=== PATIENT | female | born 1990 | race Hispanic/Latino ===

== ENCOUNTER 2020-02-20 10:03 | Day surgery (SDC) | payer OTHER ==
[2020-02-20 10:35] VITALS: BMI 36.0
[2020-02-20] MEDS ORDERED: hydrALAZINE 20 MG/ML VIAL SLOW IVP PRN (10:44)
[2020-02-20] MEDS ORDERED: FLU VACC QS2020-21(6MOS UP)/PF 60 MCG/0.5 ML SYRINGE IM ONE (10:45)
--- NOTE | 2020-02-20 11:53 | ULT ---
LIMITED OBSTETRICAL ULTRASOUND FOR BIOPHYSICAL PROFILE: Date: 02/20/2020 INDICATION: History of a 37 week intrauterine with decreased movement. FINDINGS: There is a single, live intrauterine gestation in vertex presentation. The placenta is anterior in lo cation without overt evidence of previa. The head limited visualization of the cervix. VINICIO was 21.4 cm. heart rate was 152 bpm. Tone: 2/2 Breathin/2 Movement: 2/2 Amniotic Fluid Volume: 2/2 Total: 12/01 IMPRESSION: Biophysical profile is 12/01. POS:
--- NOTE | 2020-02-21 04:08 | SS ---
DATE OF ADMISSION: 02/20/2020 DATE OF DISCHARGE: 02/20/2020 CHIEF COMPLAINT: Decreased movement. REGULAR PHYSICIAN: Fahad Mayo MD EVALUATING PHYSICIAN: En Sifuentes MD HISTORY OF PRESENT ILLNESS: Ms. Ceballos is a 29-year-old G1, P0 with an estimated date of confinement of 03/09/2020, who presents complaining of decreased movement since last evening. When questioned specifically about that, she does say that her baby has been moving. It is just less than what she would notice before. She denies ruptured membranes or vaginal bleeding. Her care has been with Dr. Mayo and she has been followed for elevated blood pressures, but has required no medicine. PAST MEDICAL HISTORY: Hypertension, reportedly secondary to control pills. PAST SURGICAL HISTORY: None. CURRENT MEDICATIONS: vitamins. ALLERGIES: LOW STATIN, WHICH SHE STATES GIVES HER HIVES. SOCIAL HISTORY: She denies tobacco, alcohol, or drug use. FAMILY HISTORY: Unremarkable. REVIEW OF SYSTEMS: Denies nausea, vomiting, fever, chills, ruptured membranes, or vaginal bleeding. PHYSICAL EXAMINATION: VITAL SIGNS: Initial blood pressure is 135/92, repeat is 126/81. GENERAL: She is pleasant and in no acute distress. heart rate tracing is stable. There are no decelerations. Good ewyz-iw-iuyk variability is seen. Biophysical profile returns 8/8 with adequate amniotic fluid. ASSESSMENT: 1. Thirty-seven week intrauterine . 2. Reassuring testing today. PLAN: Patient has been dismissed to home. The nature of movement late in a was discussed with her in detail. She states she has an appointment with Dr. Mayo in the morning. Job ID: [id number]
== END 2020-02-20 11:23 | disposition home or self-care (01) ==
LOC: L&D/OP 10:03
PROVIDERS: ATTEND Obstetrics & Gynecology
DX: O36.8130 Decreased fetal movements, third trimester, not applicable or unspecified (principal); O16.3 Unspecified maternal hypertension, third trimester; Z3A.37 37 weeks gestation of pregnancy; Z88.8 Allergy status to other drugs, medicaments and biological substances
CPT/HCPCS: 59025; 76819; 99282

== ENCOUNTER 2020-02-23 08:40 | Outpatient (CLI) | payer OTHER ==
[2020-02-23 17:49] LABS: SARS-CoV-2 MS2 Positive; SARS-CoV-2 N Gene Negative; SARS-CoV-2 S Gene Negative; SARS-CoV-2 by NAA Not Detected (NotDetected); SARS-CoV-2 orf1ab Negative
== END 2020-02-23 08:41 | disposition home or self-care (01) ==
LOC: LABBT 08:40
PROVIDERS: ATTEND Obstetrics & Gynecology
DX: Z20.828 Contact with and (suspected) exposure to other viral communicable diseases (principal)
CPT/HCPCS: 87635; U0003

== ENCOUNTER 2020-02-26 05:30 | Inpatient (IN) | payer OTHER ==
[2020-02-26] MEDS ORDERED: Carboprost 250 MCG/ML AMP IM PRN (20:05)
[2020-02-26] MEDS ORDERED: NS / Oxytocin 40 units/1000ml 1,000 ML IV PRN (20:05)
[2020-02-26] MEDS ORDERED: Butorphanol Tartrate 1 MG/ML VIAL SLOW IVP PRN (20:05)
[2020-02-26] MEDS ORDERED: Ondansetron PF 4 MG/2 ML Vial IVP PRN (20:05)
[2020-02-26] MEDS ORDERED: Promethazine HCl 25 MG/ML VIAL IM PRN (20:05)
[2020-02-26] MEDS ORDERED: Acetaminophen 500 MG TAB PO PRN (20:05)
[2020-02-26] MEDS ORDERED: Docusate 100 MG CAP PO PRN (20:05)
[2020-02-26] MEDS ORDERED: hydrALAZINE 20 MG/ML VIAL SLOW IVP PRN (20:05)
[2020-02-26] MEDS ORDERED: Misoprostol 200 MCG TAB PR PRN (20:05)
[2020-02-26] MEDS ORDERED: HYDROcodone/Acetaminophen 5/325 mg Tablet PO PRN ×2 (20:05)
[2020-02-26] MEDS ORDERED: Ibuprofen 800 MG TAB PO PRN (20:05)
[2020-02-26] MEDS ORDERED: Zolpidem Tartrate 5 MG TAB PO PRN (20:05)
[2020-02-26] MEDS ORDERED: Lidocaine 1% (PF) 30 ML VIAL SC PRN (20:05)
[2020-02-26] MEDS ORDERED: Diphenoxylate HCl/Atropine Tablet PO PRN ×2 (20:05)
--- NOTE | 2020-02-26 20:09 | PDOC.LDHP ---
Labor and Delivery H&P Chief complaint: scheduled induction HPI: 29 y/o at 38 weeks with CHTN for medical induction of labor. Current gestational age (weeks): 38 Grav: 1 Para: 0 Current complications: hypertension Abnormal US findings: No Current medications: pre- vitamins Allergies/Adverse Reactions: Allergies Allergy/AdvReac Type Severity Reaction Status Date / Time No Known Allergies Allergy Unverified 02/20/20 10:36 Social history: none - Physical Exam Vital signs reviewed and normal: yes General: NAD, resting Heart: other Lungs: nonlabored breathing Abdomen: gravid Extremeties: no edema FHT: category 1 - Assessment L&D Assessment: medically indicated induction - Plan Plan: admit to L&D, cervical ripening
[2020-02-26] MEDS ORDERED: NS w/ Oxytocin 10 units 500 ML IV SCH ×2 (20:15)
[2020-02-26 20:59] VITALS: BMI 35.2
[2020-02-26] MEDS: Lactated Ringer's 1,000 ML IV SCH ×2 (21:30→22:50)
[2020-02-26 21:42] LABS: Hemoglobin 12.9 g/dL (12.0-16.0); Mean Corpuscular HGB CONC 35.7 g/dL (32.0-36.0); Mean Corpuscular Hemoglobin 31.8 pg (27.0-31.0); Mean Corpuscular Volume 89.3 fL (78.0-98.0); Mean Platelet Volume 8.8 fL (7.4-10.4); Platelet Count 210 thou/uL (130-400); RBC Distribution Width 11.9 % (11.5-14.5); Red Blood Cell (RBC) Count 4.05 mill/uL (4.20-5.40); White Blood Cell (WBC) Count 9.5 thou/uL (4.8-10.8)
[2020-02-26 22:20] LABS: Syphilis Antibody Nonreactive (Nonreactive); Syphilis Antibody Index 0.05 S/CO (<1.00 Non-Reactive)
[2020-02-26 22:21] LABS: HBSAg Index 0.67 S/CO (0-0.99); Hep B Surf Ag Non-Reactive S/CO (NonReactive)
[2020-02-26] MEDS: Misoprostol 100 MCG TAB VAG SCH (23:00)
[2020-02-27] MEDS: Misoprostol 100 MCG TAB VAG SCH ×4 (02:17→22:26)
[2020-02-27] MEDS: Lactated Ringer's 1,000 ML IV SCH ×3 (06:23→17:34)
[2020-02-27] MEDS ORDERED: FLU VACC QS2020-21(6MOS UP)/PF 60 MCG/0.5 ML SYRINGE IM ONE (09:00)
[2020-02-27] MEDS ORDERED: Misoprostol 100 MCG TAB PO SCH (17:30)
[2020-02-28] MEDS: Misoprostol 100 MCG TAB VAG SCH ×5 (10:16→23:16)
[2020-02-28] MEDS ORDERED: Bicitra 30 ML UDCUP ONE (16:20)
[2020-02-28] MEDS ORDERED: Oxytocin 10 UNITS/ML VIAL ONE (17:10)
[2020-02-28] MEDS ORDERED: ePHEDrine 50 MG/ML VIAL ONE (17:10)
[2020-02-28] MEDS ORDERED: PHENYLEPHRINE-NS 100 MCG/ML 10 ML SYRINGE ONE (17:10)
[2020-02-28] MEDS ORDERED: CEFAZOLIN 2 GM in Premix Bag 1 BAG IVPB SCH (17:30)
[2020-02-28] MEDS ORDERED: Bicitra 30 ML UDCUP PO SCH (17:30)
[2020-02-28] MEDS ORDERED: Naloxone HCl 0.4 mg/ml Vial IV PRN (17:32)
[2020-02-28] MEDS ORDERED: diphenhydrAMINE 50 MG/ML VIAL IVP PRN (17:32)
[2020-02-28] MEDS ORDERED: Ondansetron HCl/PF 4 MG/2 ML Vial IVP PRN (17:32)
[2020-02-28] MEDS ORDERED: Naloxone HCl 0.4 mg/ml Vial IVP PRN ×2 (17:32)
[2020-02-28] MEDS ORDERED: Ketorolac Tromethamine 30 MG/ML VIAL IVP PRN (17:32)
[2020-02-28] MEDS ORDERED: Ondansetron PF 4 MG/2 ML Vial IVP PRN ×2 (17:32→21:33)
[2020-02-28] MEDS ORDERED: Promethazine HCl 25 MG/ML VIAL IM PRN ×2 (17:32→21:33)
[2020-02-28] MEDS ORDERED: Promethazine HCl 25 MG SUPP PR PRN (17:32)
[2020-02-28] MEDS ORDERED: Fentanyl 100 MCG/2 ML VIAL ONE (17:36)
[2020-02-28] MEDS ORDERED: Communication Order-Pharmacy FS SCH (17:45)
[2020-02-28] MEDS ORDERED: Acetaminophen 650 MG Suppository PR SCH (18:00)
[2020-02-28] MEDS ORDERED: diphenhydrAMINE 50 MG/ML VIAL ONE (19:31)
[2020-02-28] MEDS ORDERED: Ketorolac Tromethamine 30 MG/ML VIAL ONE (20:45)
[2020-02-28] MEDS ORDERED: Misoprostol 200 MCG TAB PR PRN (21:33)
[2020-02-28] MEDS ORDERED: Bisacodyl 10 MG SUPP PR PRN (21:33)
[2020-02-28] MEDS ORDERED: HYDROcodone/Acetaminophen 5/325 mg Tablet PO PRN (21:33)
[2020-02-28] MEDS ORDERED: diphenhydrAMINE 25 MG CAP PO PRN (21:33)
[2020-02-28] MEDS ORDERED: hydrALAZINE 20 MG/ML VIAL SLOW IVP PRN (21:33)
[2020-02-28] MEDS ORDERED: Lanolin Ointment 7 GM TUBE TOP PRN (21:33)
[2020-02-28] MEDS ORDERED: Docusate Calcium (SURFAK) 240 MG CAP PO SCH (21:45)
[2020-02-28] MEDS: Lactated Ringer's 1,000 ML IV SCH (23:14)
[2020-02-29] MEDS: Ketorolac Tromethamine 30 MG/ML VIAL IVP PRN ×2 (02:50→09:50)
[2020-02-29] MEDS: Ibuprofen 800 MG TAB PO SCH ×2 (04:39→15:03)
[2020-02-29 06:02] LABS: Hemoglobin 11.3 g/dL (12.0-16.0); Mean Corpuscular HGB CONC 33.8 g/dL (32.0-36.0); Mean Corpuscular Hemoglobin 30.8 pg (27.0-31.0); Mean Platelet Volume 8.6 fL (7.4-10.4); Platelet Count 170 thou/uL (130-400); Red Blood Cell (RBC) Count 3.69 mill/uL (4.20-5.40); White Blood Cell (WBC) Count 10.6 thou/uL (4.8-10.8)
[2020-02-29] MEDS: Simethicone Chewable 80 MG TAB PO PRN ×2 (08:42→19:31)
[2020-02-29] MEDS: Docusate Calcium (SURFAK) 240 MG CAP PO SCH (08:42)
[2020-02-29] MEDS: Prenatal Vitamin 1 TAB PO SCH (08:42)
[2020-02-29] MEDS ORDERED: Varicella virus, LIVE 0.5 ML VIAL SC ONE (09:00)
[2020-02-29] MEDS ORDERED: Measles/Mumps/Rubella 10 MCG/0.5 ML VIAL SC ONE (09:00)
[2020-02-29] MEDS ORDERED: Adacel (T-DAP) 0.5 ML SYRINGE IM ONE (09:00)
[2020-02-29] MEDS: HYDROcodone/Acetaminophen 5/325 mg Tablet PO PRN (19:31)
--- NOTE | 2020-02-29 20:01 | PDOC.PP ---
Post Progress Note Post Day #: 1 PO intake tolerated: yes Flatus: yes Ambulation: yes Vital Signs (12 hours) Temp Pulse Resp BP Pulse Ox 02/29/20 16:22 97.7 F 82 18 135/77 02/29/20 11:30 98.5 F 90 20 113/67 97 02/29/20 08:32 98.8 F 94 16 104/55 L 99 Weight Weight 225 lb - Physical Examination General: NAD Cardiovascular: no m/r/g, RRR Respiratory: clear to auscultation bilaterally, non-labored breathing Abdominal: + bowel sounds, lochia, no distention, appropriately TTP Extremities: negative homans (B) Skin: CS incision dry & intact, no rash Neurological: no gross focal deficits Psychiatric: A&Ox3, normal affect Result Diagrams: 02/29/20 05:44 Additional Labs: Post Labs Hep Bs Antigen Non-Reactive S/CO (NonReactive) 02/26/20 21:33 Blood Type O POSITIVE 02/26/20 23:18
[2020-03-01] MEDS: Ibuprofen 800 MG TAB PO SCH ×2 (00:17→06:50)
--- NOTE | 2020-03-01 00:44 | OP ---
DATE OF PROCEDURE: 02/28/2020 TIME OF SERVICE: 1808 hours central standard time. PREOPERATIVE DIAGNOSES: Intrauterine at 38 weeks and 4 days with medical induction of labor, failed induction, primary low-transverse section . POSTOPERATIVE DIAGNOSES: Intrauterine at 38 weeks and 4 days with medical induction of labor, failed induction, primary low-transverse section . PROCEDURE PERFORMED: Primary low transverse section. FINDINGS: Viable male , weighing 3730 g, 8 pounds 4 ounces, Apgars of 8 and 9. QUANTITATIVE BLOOD LOSS: 568 mL. COMPLICATIONS: None. DETAILS OF THE PROCEDURE: After obtaining consent, the patient was taken back to the operating room where her regional anesthesia was found to be adequate. The patient was placed in the dorsal supine position with leftward tilt. The skin was tested for adequate anesthesia and a scalpel was then used to make a Pfannenstiel incision which was carried down to the underlying rectus fascia. The fascia was incised in the midline and the fascial incision extended in both lateral directions. 2 Brendon clamps were placed at the superior aspect of the fascia and the rectus muscles were dissected away. Similarly, 2 Brendon clamps were placed at the inferior aspect of the incision and rectus muscles dissected away. The rectus muscles were then in the midline and the peritoneum identified and entered bluntly with the hemostat. The peritoneal incision was then extended superiorly and inferiorly. A bladder blade was then placed within the peritoneal cavity and a bladder flap was made with Metzenbaum scissors and pickups with teeth. The bladder blade was replaced. A clean scalpel was used to make a uterine incision. The baby was then delivered with gentle fundal pressure without difficulty. The baby's mouth and nose were bulb suctioned and the cord clamped and cut. The baby was then handed to waiting attendants. Cord blood and cord gases were obtained. The placenta was manually extracted. The uterus exteriorized, cleared of all clots and debris, and repaired with #1 chromic suture in a running, locked fashion. Hemostasis at the uterine wall was excellent. The bladder flap was repaired with 2-0 Monocryl in a running fashion. The tubes and ovaries were inspected and appeared normal. The posterior cul-de-sac was blotted dry and the uterus was replaced within the abdomen. Again, the uterus was firm, and hemostasis was excellent at the uterine repair. Peritoneum was closed with 2-0 chromic suture in a running fashion. Fascia was reapproximated with 0 Vicryl, using 2 running sutures tied in the midline. The subcutaneous tissue was irrigated. Hemostasis was assured and the skin closed with 3-0 Monocryl and Dermabond adhesive. The patient was then transferred to the ambulatory bed and taken to recovery in stable condition. Job ID: [id number]
[2020-03-01] MEDS: Docusate Calcium (SURFAK) 240 MG CAP PO SCH ×2 (02:07→08:32)
[2020-03-01] MEDS: HYDROcodone/Acetaminophen 5/325 mg Tablet PO PRN (06:51)
[2020-03-01] MEDS: Prenatal Vitamin 1 TAB PO SCH (08:32)
[2020-03-01 11:37] VITALS: BP 124/68; TEMP 97.8
== END 2020-03-01 12:40 | disposition home or self-care (01) | DRG 788 ==
LOC: L&D 19:54 → 3SW 02-28 21:27
PROVIDERS: ADMIT Obstetrics & Gynecology; ATTEND Obstetrics & Gynecology
PROC: 10D00Z1 Extraction of Products of Conception, Low, Open Approach (ICD-10-PCS; principal; 2020-02-28)
DX: O10.92 Unspecified pre-existing hypertension complicating childbirth (principal); Z3A.38 38 weeks gestation of pregnancy; Z37.0 Single live birth
CPT/HCPCS: 36415; 85027; 86780; 86850; 86900; 86901; 87340; 87635; 88305; 90715; J1200; J1885; J2270; J3010; J3490; U0003